=== PATIENT | male | born 1990 | race Two or more races ===

== ENCOUNTER 2025-03-11 22:03 | Emergency (ER) | payer OTHER ==
[2025-03-11] MEDS ORDERED: Ketorolac Tromethamine 30 MG (1 mL) VIAL ONE (22:21)
[2025-03-11 23:22] LABS: #Basophils 0.07 10x3/uL (0.0-0.2); #Eosinophils 0.79 10x3/uL (0.0-0.7); #Monocytes 0.97 10x3/uL (0.11-0.59); #Neutrophils 4.85 10x3/uL (1.40-6.50); %Basophils 0.8 % (0.0-1.0); %Eosinophils 8.8 % (0.0-10.0); %Lymphocytes 25.1 % (21.0-51.0); %Monocytes 10.8 % (0.0-10.0); %Neutrophils 54.2 % (42.0-75.0); Hematocrit 37.7 % (42.0-52.0); Hemoglobin 12.5 g/dL (14.0-18.0); Mean Corpuscular Hemoglobin 28.6 pg (27.0-31.0); Mean Corpuscular Volume 86.3 fL (78.0-98.0); Platelet Count 248 10x3/uL (130-400); Red Blood Cell (RBC) Count 4.37 mill/uL (4.70-6.10); White Blood Cell (WBC) Count 8.96 10x3/uL (4.8-10.8)
[2025-03-11] MEDS ORDERED: levETIRAcetam 500 MG (5 mL) VIAL ONE (23:33)
[2025-03-11 23:34] LABS: Bacteria/HPF None Seen HPF (None Seen); CAUTI Indications for Culture < 2yrs of age; Glucose, Urine (Dipstick) Normal (Negative); Leukocyte Negative Leu/uL (Negative); Protein, Urine (Dipstick) Negative (Neg-Trace); RBC/HPF 0-3 HPF (0-3); Specific Gravity, Urine 1.019 (1.002-1.036); WBC/HPF 0-3 HPF (0-3)
[2025-03-11 23:36] LABS: Urine Culture Reflex Yes Yes
[2025-03-11 23:42] LABS: Acetaminophen Less than 10 mcg/mL (Less than 10); Lipase 25 U/L (8-78); Magnesium 1.8 mg/dL (1.6-2.6); Salicylate Less than 8.0 mg/dL (Less than 8.0)
[2025-03-11 23:42] LABS: Cocaine Metabolite Screen Negative (Negative); THC/Cannabinoid Screen Negative (Negative); Tricyclic Screen Negative (Negative)
[2025-03-11 23:44] LABS: ALT (SGPT) 38 U/L (Less than 45); AST (SGOT) 25 U/L (11-34); Albumin 4.0 g/dL (3.1-4.5); Alkaline Phosphatase 58 U/L (40-110); Anion Gap 14 mmol/L (10-20); BUN (Urea Nitrogen) 18 mg/dL (8.9-20.6); Bilirubin, Total 0.2 mg/dL (0.3-1.2); CK (CPK) 282 U/L (30-200); Calc. Creatinine Clearance 0 mL/min (70-130); Calcium 9.0 mg/dL (7.8-10.44); Carbon Dioxide 23 mmol/L (22-29); Chloride 108 mmol/L (98-107); Globulin 2.4 g/dL (2.4-3.5); Glucose 89 mg/dL (70-105); Potassium 3.9 mmol/L (3.5-5.1); Sodium 141 mmol/L (136-145)
[2025-03-12 00:18] LABS: Troponin I Less than 0.010 ng/mL (< 0.028)
== END 2025-03-12 00:38 ==
LOC: ERS 22:03
DX: R56.9 Unspecified convulsions (principal); R29.700 NIHSS score 0; Z55.6 Problems related to health literacy
CPT/HCPCS: 80053; 80177; 80306; 80307; 81001; 82550; 83605; 83690; 83735; 84484; 85025; 87086; 93005; 96365; 96375; J1885; J1953